=== PATIENT | female | born 2005 | race Two or more races ===

== ENCOUNTER 2024-11-11 23:47 | Emergency (ER) | payer OTHER ==
[~2024-11-11] VITALS: Ht 160 cm; Wt 108.9 kg
[2024-11-12] MEDS ORDERED: ACETAMINOPHEN 500 MG GEL..CAP PO STA (00:53)
[2024-11-12] MEDS ORDERED: ORPHENADRINE CITRATE 30 MG/ML AMPUL IM STA (00:54)
[2024-11-12] MEDS ORDERED: ORPHENADRINE CITRATE 30 MG/ML AMPUL ONE (01:01)
[2024-11-12] MEDS ORDERED: ACETAMINOPHEN 500 MG GEL..CAP PO ONE (01:02)
[2024-11-12 02:03] LABS: URINE APPEARANCE Cloudy; URINE BILIRRUBIN Negative (NEGATIVE); URINE BLOOD Negative; URINE COLOR Yellow; URINE GLUCOSE Negative (NEGATIVE); URINE KETONE Negative (NEGATIVE); URINE LEUKOCYTE Negative; URINE NITRATE Negative; URINE PROTEIN Negative (NEGATIVE); URINE UROBILINOGEN 0.2 E.U./dl
[2024-11-12 02:04] LABS: BASO % 0.2 % (0.1-1.2); EOS # 0.29 (0.04-0.54); EOS % 3.4 % (0.7-7.0); LYMPH # 2.86 (1.18-3.74); LYMPH % 33.9 % (19.3-53.1); MEAN PLATELET VOLUME 9.20 fl (9.4-12.4); MONO # 0.50 (0.24-0.82); MONO % 5.9 % (4.7-12.5); NEUT # 4.75 (1.56-6.13); NEUT % 56.4 % (34.0-71.1); RED CELL DISTRIBUTION WIDTH 11.9 % (11.6-14.4)
[2024-11-12 02:07] LABS: URINE BACTERIA 733.1 uL (0.0-1933); URINE EPITHELIAL CELLS 14.1 uL (0.0-38.8); URINE RBC 2.4 uL (0.0-20.8); URINE WBC 13.2 uL (0.0-23.2)
[2024-11-12 02:09] LABS: URINE CAST 0.00 uL (0.0-1.40)
[2024-11-12 02:12] LABS: ALT/SGPT 24.0 U/L (12-78); AST/SGOT 13.0 U/L (15-37); BILIRUBIN TOTAL 0.17 mg/dL (0.3-1.2); BUN CREA RATIO 27.0 (7.0-25.0); CREATININE SERUM 0.44 mg/dL (0.55-1.02); GFR 182.3; GLOBULINA 3.6 G/DL (2.4-3.5); GLUCOSE FASTING 88.0 mg/dL (65-100); OSMOLALITY SERUM 279.0 MOSM/KG (275-295)
== END 2024-11-12 03:08 ==
LOC: ER 23:47
PROVIDERS: General Practice
DX: O26.891 Other specified pregnancy related conditions, first trimester (principal); M62.838 Other muscle spasm; Z3A.10 10 weeks gestation of pregnancy

== ENCOUNTER 2024-12-24 20:40 | Emergency (ER) | payer OTHER ==
[~2024-12-24] VITALS: Ht 160 cm; Wt 107.5 kg
[2024-12-24] MEDS ORDERED: LABETALOL HCL200 MG PO (21:44)
[2024-12-24] MEDS ORDERED: DIPHENHYDRAMINE HCL 50 MG/ML VIAL 1ML IV STA (22:14)
[2024-12-24] MEDS ORDERED: METHYLPREDNISOLONE SOD SUCC 40 MG VIAL IV STA (22:14)
[2024-12-24] MEDS ORDERED: METHYLPREDNISOLONE SOD SUCC 40 MG VIAL ONE (22:41)
[2024-12-24] MEDS ORDERED: DIPHENHYDRAMINE HCL 50 MG/ML VIAL 1ML ONE (22:41)
[2024-12-24 23:28] LABS: BASO % 0.2 % (0.1-1.2); EOS # 0.50 (0.04-0.54); EOS % 5.1 % (0.7-7.0); LYMPH # 2.71 (1.18-3.74); LYMPH % 27.5 % (19.3-53.1); MEAN PLATELET VOLUME 9.20 fl (9.4-12.4); MONO # 0.61 (0.24-0.82); MONO % 6.2 % (4.7-12.5); NEUT # 5.97 (1.56-6.13); NEUT % 60.6 % (34.0-71.1); RED CELL DISTRIBUTION WIDTH 12.3 % (11.6-14.4)
[2024-12-24 23:47] LABS: ALT/SGPT 31.0 U/L (12-78); AST/SGOT 16.0 U/L (15-37); BILIRUBIN TOTAL 0.13 mg/dL (0.3-1.2); BUN CREA RATIO 20.0 (7.0-25.0); GFR 177.63; GLOBULINA 4.2 G/DL (2.4-3.5); GLUCOSE FASTING 90.0 mg/dL (65-100); OSMOLALITY SERUM 278.0 MOSM/KG (275-295)
[2024-12-24 23:48] LABS: CREATININE SERUM 0.45 mg/dL (0.55-1.02)
[2024-12-25 01:04] LABS: URINE APPEARANCE CLEAR; URINE BILIRRUBIN NEGATIVE (NEGATIVE); URINE COLOR YELLOW; URINE GLUCOSE NEGATIVE (NEGATIVE); URINE KETONE TRACE (NEGATIVE)
[2024-12-25 01:05] LABS: URINE BLOOD NEGATIVE; URINE LEUKOCYTE NEGATIVE; URINE NITRATE NEGATIVE; URINE PROTEIN NEGATIVE (NEGATIVE); URINE RBC 14.8 uL (0.0-20.8); URINE UROBILINOGEN 0.2 E.U./dl
[2024-12-25 01:06] LABS: URINE CAST 0.44 uL (0.0-1.40); URINE EPITHELIAL CELLS 29.8 uL (0.0-38.8); URINE WBC 55.2 uL (0.0-23.2)
[2024-12-25] MEDS ORDERED: BENADRYL25 MG PO (02:32)
[2024-12-25] MEDS ORDERED: MEDROL4 MG PO (02:32)
== END 2024-12-25 02:38 ==
LOC: ER 20:41
PROVIDERS: General Practice
DX: Z33.1 Pregnant state, incidental (principal); Z3A.16 16 weeks gestation of pregnancy; L50.9 Urticaria, unspecified; L30.9 Dermatitis, unspecified; R21 Rash and other nonspecific skin eruption; I10 Essential (primary) hypertension